=== PATIENT | female | born 1980 | race Caucasian/White ===

== ENCOUNTER 2016-07-18 02:33 | Inpatient (IN) | payer OTHER ==
[~2016-07-18] VITALS: Ht 182.9 cm; Wt 99.3 kg
[~2016-07-18 02:33] MED LIST: ALPR0.5T PO; ASCO500C6 PO; CHOL100043 PO; IBUP200C PO; MULT-1018 PO; OXYC1TAB24 PO; SCOP1PAT TD; ZLP5T PO
[2016-07-18] MEDS ORDERED: Lactated Ringer's 1,000 ML IV PRN (03:12)
[2016-07-18] MEDS ORDERED: Penicillin G K Inj 5,000,000 UNITS in Dextrose 5% Minibag Plus 100 ML IV ONE (03:15)
[2016-07-18] MEDS ORDERED: Oxytocin 30 Units/500 mL LR 30 UNITS in IV Premix 1 EACH IV PRN ×3 (03:15→23:55)
[2016-07-18] MEDS ORDERED: Sodium Chloride LOK Flush 10 mL Syringe IVFLUSH PRN (03:15)
[2016-07-18] MEDS ORDERED: Hemorrhage Kit, Post Partum XX ONE ×2 (03:15→23:55)
[2016-07-18] MEDS ORDERED: Methylergonovine 0.2 mg/mL Inj IM PRN ×2 (03:15→23:55)
[2016-07-18] MEDS ORDERED: Carboprost 250 mCg/mL Inj IM PRN ×2 (03:15→23:55)
[2016-07-18] MEDS ORDERED: Oxytocin 10 Unit/mL Inj IM PRN ×2 (03:15→23:55)
[2016-07-18] MEDS ORDERED: fentaNYL-PF 50 mCg/mL 2 mL Inj IVPUSH PRN (03:15)
[2016-07-18 04:02] LABS: Mean Corpuscular Hemoglobin 31.3 pg (27.0-35.0); Mean Corpuscular Volume 88.7 fL (81-100)
[2016-07-18] MEDS: Penicillin G K Inj 3,000,000 UNITS in IV Premix 1 EACH IV SCH ×4 (08:07→19:43)
--- NOTE | 2016-07-18 09:54 | HP ---
[address] [address] HISTORY AND PHYSICAL PATIENT: CLAUDIA SALAS : 1980 MR#: [id number] ADMIT: 07/18/2016 JOB ID: [id number] HISTORY OF PRESENT ILLNESS: The patient is a 35-year-old, 1, para 0, who comes to Labor and Delivery with complaint of spontaneous rupture of membranes at 2:15 a.m. She does not have any contractions. heart rate tracing is reactive, category 1. She feels good movements. Her care was complicated by mild -induced hypertension, the ultrasound and biophysical profiles that were done 3 weeks ago were normal. heart rate tracing is reactive, category 1, baseline 135 beats per minute. No decelerations. PERTINENT PAST MEDICAL HISTORY: Noncontributory. SOCIAL HISTORY: Patient denies smoking, alcohol, illicit or recreational drug use. ALLERGIES: NKDA. FAMILY HISTORY: Noncontributory. PHYSICAL EXAMINATION: Vital signs: Blood pressure 154/76, pulse 66, respiratory rate 18, temperature 36.7. The patient is awake and oriented x3 in no apparent distress. HEENT: PERRLA. Chest clear bilaterally, good respiratory effort. Cardiovascular regular rate and rhythm. Abdomen is gravid, nontender, nondistended. Extremities 1+ trace pitting edema. Pelvic exam: The cervix is 1 cm dilated, 50% effaced, station -3. The membranes ruptured. Amniotic fluid clear. LABS: WBC count 6.7, hemoglobin 13.5, hematocrit 38.3, platelets 207. Protein creatinine ratio 0.57. labs were reviewed. She is blood group and type O-positive, antibody is negative. Group B Strep positive. Rubella immune. Varicella immune. ASSESSMENT AND PLAN: A 35-year-old, 1, para 0, at 39 weeks and 3 days with spontaneous rupture of membranes being admitted to Labor and Delivery. The care is characterized by mild -induced hypertension. Today's blood pressure is elevated and protein creatinine ratio is slightly elevated at 0.57. No need for antihypertensive medications at this point. Augmentation of labor was discussed with the patient. Cervidil vaginal insert will be placed. The labs were sent. IV fluid started was lactated Ringer at 125 mL/h. Penicillin will be given for group B Strep prophylaxis. The pain management was discussed. Epidural anesthesia will be provided as necessary as per patient's request.
--- NOTE | 2016-07-18 14:03 | PROG NOTE ---
[address] [address] PROGRESS NOTE PATIENT: CLAUDIA SALAS : 1980 MR#: [id number] ADMIT: 07/18/2016 JOB ID: [id number] DATE: 07/18/2016 Vital signs are 118/79 for blood pressure. Respirations are 18, pulse is 64. Temperature 36.3 degrees centigrade. The patient admitted for premature rupture of membranes at 39 weeks and [address] Connor this morning. This is an IVF . Cervix is 1 cm dilated, 20% effaced, -3 station. Posterior position, medium consistency. Scott score of 2. Bedside ultrasound confirmed vertex presentation. The patient had Cervidil inserted vaginally at 8 a.m. this morning with no cervical change so far. Cervical ripening balloon was inserted, 60 cc injected in the uterine balloon and 60 cc injected in the vaginal balloon. Sterile water was used. The patient tolerated the insertion well. Cervidil was the left in place. heart tracing is showing baseline of 135 beats per minute, positive accelerations, no decelerations, moderate variability, reactive tracing. ASSESSMENT AND PLAN: Patient is a 35-year-old, 1, para zero, at 39 weeks and 2 days gestational age, with premature rupture of membranes. Induction of labor started with Cervidil and will continue with the balloon cervical ripening. Patient tolerated insertion well. GBS positive cultures. Penicillin started. Discussed intrapartum analgesia options. Patient opted for epidural. Anesthesia notified. Reactive heart tracing. Continue with external monitoring. All the above discussed in detail with the patient who agreed to the plan.
[2016-07-18] MEDS ORDERED: Lactated Ringer's 500 ML IV ONE (15:41)
[2016-07-18] MEDS: Lactated Ringer's 1,000 ML IV SCH ×2 (15:44→19:43)
[2016-07-18] MEDS ORDERED: Atropine 1 mg/10 mL (Code) Syringe IVPUSH PRN (15:45)
[2016-07-18] MEDS ORDERED: fentaNYL 2 mCg/mL-Bupiv 0.125% 100 ML EPIDURAL SCH (15:45)
[2016-07-18] MEDS ORDERED: EPHEDrine Sulfate 50 mg/mL Inj IVPUSH PRN (15:45)
[2016-07-18] MEDS ORDERED: Ondansetron 2 mg/mL 2 mL Inj IVPUSH PRN (15:45)
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
[2016-07-18] MEDS: Sodium Chloride LOK Flush 10 mL Syringe IVFLUSH SCH (16:30)
[2016-07-18] MEDS ORDERED: Mineral Oil-Heavy 30 mL UDC ONE (22:07)
[2016-07-18] MEDS ORDERED: Lactated Ringer's 1,000 ML IV SCH (23:53)
[2016-07-18] MEDS ORDERED: Benzocaine (Dermoplast) 20% 60 Gm Spray TOPICAL PRN (23:55)
[2016-07-18] MEDS ORDERED: oxyCODONE-Acetamin 5-325 mg Tablet PO PRN (23:55)
[2016-07-18] MEDS ORDERED: LANOlin HPA 7 Gm Ointment TOPICAL PRN (23:55)
[2016-07-19] MEDS: Penicillin G K Inj 3,000,000 UNITS in IV Premix 1 EACH IV SCH ×4 (00:30→07:12)
[2016-07-19] MEDS: Sodium Chloride LOK Flush 10 mL Syringe IVFLUSH SCH (00:30)
[2016-07-19] MEDS: Witch Hazel-Glycerin Pads TOPICAL PRN (01:25)
--- NOTE | 2016-07-19 02:04 | OP ---
[address] [address] OPERATIVE REPORT PATIENT: CLAUDIA SALAS : 1980 MR#: [id number] ADMIT: 07/18/2016 JOB ID: [id number] DATE OF SURGERY: 07/18/2016 PREOPERATIVE DIAGNOSIS(ES): A 35-year-old, 1, para 0, at 39 weeks and 2 days gestational age, admitted with premature rupture of membranes and preeclampsia by blood pressure criteria and urine protein creatinine of 0.[address] Connor. Induction of labor was started with Cervidil cervical ripening alone and Pitocin. The patient progressed to fully dilated, +3 station. POSTOPERATIVE DIAGNOSIS(ES): A 35-year-old, 1, para 0, at 39 weeks and 2 days gestational age, admitted with premature rupture of membranes and preeclampsia by blood pressure criteria and urine protein creatinine of 0.[address] Connor. Induction of labor was started with Cervidil cervical ripening alone and Pitocin. The patient progressed to fully dilated, +3 station. PROCEDURE: Spontaneous vaginal delivery. SURGEON: Morgan Ibarra MD ANESTHESIA: Epidural. ESTIMATED BLOOD LOSS: 200 cc. COMPLICATIONS: Persisting category 2 heart tracing at baseline of 150 beats per minute. Deep variables down to 50 beats per minute, back to the baseline, 3 minute prolonged decelerations down to 50 beats per minute, back to the baseline. Positive accelerations. DESCRIPTION OF PROCEDURE: Decision was made to proceed with a right mediolateral episiotomy. The patient agreed. Baby was delivered right after the episiotomy was cut. Procedure, risks, benefits, and alternatives discussed with the patient. The patient started to push efficiently. Infant had delivered in left occiput anterior position spontaneously, followed by shoulders and rest of the body. Delayed cord clamping allowed for 60 seconds. placed over mom's chest. Cord clamped and cut. Placenta followed spontaneously. Upon inspection, it was noted to be intact with marginal insertion of a three-vessel cord. Inspection of the perineum revealed a right mediolateral episiotomy that was cut to resolve the persisting category 2 heart tracing. Epidural was adequate for episiotomy repair, repaired in two layer fashion with 2-0 Vicryl suture. Good hemostasis assured. The patient tolerated the procedure well. Sponge, needle, and instrument counts were correct x2. Mom and baby recovering in stable condition in Labor and Delivery room. FINDINGS: Single viable male infant with Apgars 7/9, weight is still pending. Preeclampsia labs ordered for the morning.
[2016-07-19 06:09] LABS: Mean Corpuscular Hemoglobin 32.2 pg (27.0-35.0); Mean Corpuscular Volume 90.4 fL (81-100)
--- NOTE | 2016-07-19 06:19 | PCM.ANEP1 ---
Post Anesthesia PACU Phase 1 Assessment Date of Service: July 19, 2016 Vital Signs See OB documentation Anesthetic Administered: Epidural Level of Alertness: Awake, talking NAGEL's with Equal Strength: Yes Pain: Yes Pain Scale Score: 1 Nausea or Vomiting: No CV Function & Hydration Stable: Yes Airway Device: Oxygen Delivery: Room Air Lungs: Normal Air Movement Dermatome Level: Full Sensation PACU Phase 2 Assessment Complications: No Follow up Care: No Patient Instructions Provided: N/A Kale Muniz MD July 19, 2016 06:19
[2016-07-19] MEDS: Ascorbic Acid 500 mg Tablet PO SCH ×2 (08:52→21:40)
--- NOTE | 2016-07-19 14:20 | NUR ---
Wt. and color check: Wt. 2637gm today (-3.1%). TC bili 8.8 at 61 hrs. T 37.1, HR 130, RR 39. Mom states baby is nursing for 20 min and then taking 20-30 ml Neosure by bottle. Exam by Dr. Arguello. Dsbinharged home with f/u tomorrow at [facility].
--- NOTE | 2016-07-19 14:45 | PROG NOTE ---
[address] [address] PROGRESS NOTE PATIENT: CLAUDIA SALAS : 1980 MR#: [id number] ADMIT: 07/18/2016 JOB ID: [id number] DATE: 07/19/2016 Patient had a spontaneous vaginal delivery at midnight last night. Mom and baby recovering well. Breast-feeding with no difficulties. The patient denied any headache, visual symptoms, right upper quadrant pain, leg pain, chest pain, or shortness of breath. OBJECTIVE: Vital signs are 126/73 for blood pressure. Respirations are 18, pulse is 74, temperature 36.4 degrees centigrade. Blood pressure ranges for the last 14 hours 140-121 for systolics, 96-69 for diastolics. Heart is regular rate and rhythm. Positive S1, S2. Lungs clear to auscultation bilaterally upper and lower zones. Abdomen firm. Uterine fundus palpated above the umbilicus. Nontender. Positive bowel sounds. Nondistended abdomen. No right upper quadrant tenderness. Perineum: No active bleeding. Lower extremities: No calf tenderness appreciated bilaterally. Deep tendon reflexes are 2+ upper, 2+ lower. No clonus. LABORATORIES: This morning, blood urea nitrogen 7, creatinine is 0.74. AST 31, ALT 12. H and H is 11 and 30.9, platelets are 193. White blood count is 10.4. Urine/protein creatinine ratio is still pending. ASSESSMENT AND PLAN: Patient is a 35-year-old, 1, para 1, day number one, status post spontaneous vaginal delivery after induction of labor for premature rupture of membranes and preeclampsia. Blood pressures are improving over the last 14 hours with no medications. Labs are stable. Anemia: Started on iron and vitamin C supplementation. Continue with care. Anticipate discharge tomorrow.
--- NOTE | 2016-07-20 09:02 | PCM.PNOBPP ---
Subjective Date of Service July 20, 2016 Post : Spontaneous Vaginal Delivery Visit History A 35-year-old, 1, para 0, at 39 weeks and 2 days gestational age, admitted with premature rupture of membranes and preeclampsia by blood pressure criteria and urine protein creatinine of 0.[address] Connor. Induction of labor was started with Cervidil cervical ripening alone and Pitocin. The patient progressed to fully dilated, +3 station. Had an with episiotomy on 07/18/2016. she is doing well and her BP have returned to normal. Subjective No complaints today. Lochia: Normal Pain Management: PO pain meds, Good Pain Control Gastrointestinal: Good Appetite, No N/V Postop Activity: Ambulating Independently Group B Strep Results: Positive Rubella: Immune RH Type: Positive Labs Laboratory Tests 72 Hours Test 07/18/16 03:45 07/18/16 04:00 07/19/16 05:50 07/19/16 15:00 White Blood Count 6.7th/mm3 (3.8-10.1) 10.4th/mm3 (3.8-10.1) Red Blood Count 4.32mil/mm3 (3.90-5.20) 3.42mil/mm3 (3.90-5.20) Hemoglobin 13.5g/dL (12.0-15.6) 11.0g/dL (12.0-15.6) Hematocrit 38.3% (35.0-46.0) 30.9% (35.0-46.0) Mean Corpuscular Volume 88.7fL (81-100) 90.4fL (81-100) Mean Corpuscular Hemoglobin 31.3pg (27.0-35.0) 32.2pg (27.0-35.0) Mean Corpuscular Hemoglobin Concent 35.2% (32.0-37.0) 35.6% (32.0-37.0) Red Cell Distribution Width 13.0% (12.3-15.4) 12.8% (12.3-15.4) Platelet Count 207bil/L (150-400) 193bil/L (150-400) Blood Urea Nitrogen 8mg/dL (6-20) 7mg/dL (6-20) Creatinine 0.74mg/dL (0.57-1.00) 0.74mg/dL (0.57-1.00) Uric Acid 6.4mg/dL (2.6-7.2) Aspartate Amino Transf (AST/SGOT) 23U/L (0-50) 31U/L (0-50) Alanine Aminotransferase (ALT/SGPT) 15U/L (0-32) 12U/L (0-32) Urine Random Creatinine 28mg/dL (16-392) 35mg/dL (16-392) Urine Random Total Protein 16mg/dL (0-15) 5mg/dL (0-15) Urine Protein/Creatinine Ratio 0.57 (0-200) 0.14 (0-200) Exam Vital Signs Vital Signs: VS reviewed, stable Exam Abdomen: Fundus firm Extremities: No cords Lungs: Clear to Auscultation Heart: Exam Unremarkable General: Alert, Oriented X3, Cooperative, No Acute Distress OB Post Assessment/Plan Problems: (1) care and examination immediately after delivery Status: Acute ICD Code: Z39.0 (2) Mild preeclampsia delivered Status: Acute ICD Code: O14.04 Pain Evaluation: Adequate Pain Control Post plan: Anticipate discharge home today Monse Bashir MD July 20, 2016 09:02
--- NOTE | 2016-07-20 09:04 | PCM.DIOB ---
Obstetrical Disch Instruction Date of Service: July 20, 2016 Dates of Hospitalization Date of Hospital Admission July 18, 2016 at 03:05 Providers Admitting Physician: Al Connor MD Primary Care Physician: Errol Owens MD Attending Physician: Al Connor MD Discharge Diagnosis Problems: (1) care and examination immediately after delivery Plan: Discharge home today. Status: Acute ICD Code: Z39.0 (2) Mild preeclampsia delivered Status: Acute ICD Code: O14.04 Diet Discharge Diet: No restrictions Activity Discharge Activity-General: Pelvic Rest for 6 weeks, Try not to overdue, Be up and about Dressing and Incisional Care Hygiene: May shower, NO bathtub, hot tub or whirlpool (for two weeks), Perineal care, Sitz bath, Dermoplast spray, Witch Luana pads, Ice Follow Up Plan Follow-up Provider (F9): Monse Bashir MD Follow-up appointment: Weeks (4) Call your provider for: Fever or Chills, Shortness of breath, Heavy vaginal bleeding, Vaginal discomfort, Red painful breasts Monse Bashir MD July 20, 2016 09:04
[2016-07-20] MEDS ORDERED: FERR-74 PO (09:08)
[2016-07-20] MEDS ORDERED: IBUP-1827 PO (09:08)
[2016-07-20] MEDS ORDERED: Ascorbic Acid PO (09:08)
[2016-07-20] MEDS ORDERED: DOCU-41 PO (09:08)
[2016-07-20] MEDS ORDERED: OXYC1TAB24 PO (09:08)
--- NOTE | 2016-07-20 09:10 | PCM.DC.OB ---
Obstetrical Discharge Summary Date of Service July 20, 2016 Date of hospital admission July 18, 2016 at 03:05 Date of Discharge: July 20, 2016 Providers Admitting Physician: Al Connor MD Primary Care Physician: Errol Owens MD Attending Physician: Al Connor MD Problems: (1) care and examination immediately after delivery Status: Acute ICD Code: Z39.0 (2) Mild preeclampsia delivered Status: Acute ICD Code: O14.04 Brief History and Physical: A 35-year-old, 1, para 0, at 39 weeks and 2 days gestational age, admitted with premature rupture of membranes and preeclampsia by blood pressure criteria and urine protein creatinine of 0.[address] Connor. Induction of labor was started with Cervidil cervical ripening alone and Pitocin. The patient progressed to fully dilated, +3 station. Had an with episiotomy on 07/18/2016. she is doing well and her BP have returned to normal. Hospital Course: A 35-year-old, 1, para 0, at 39 weeks and 2 days gestational age, admitted with premature rupture of membranes and preeclampsia by blood pressure criteria and urine protein creatinine of 0.[address] Connor. Induction of labor was started with Cervidil cervical ripening alone and Pitocin. The patient progressed to fully dilated, +3 station. Had an with episiotomy on 07/18/2016. she is doing well and her BP have returned to normal. ([Ascorbic Acid]) 500 MG TABLET 500 MG PO BIDWM Prescribed by: MONSE BASHIR MD Alprazolam (Xanax) 0.5 Mg Tablet 0.5 MG PO DAILY PRN PRN For Anxiety (Reported) Ascorbic Acid (Vitamin C) 500 Mg Capsule.er 500 MG PO DAILY (Reported) Cholecalciferol (Vitamin D3) (Vitamin D) 1,000 Unit Tablet 2,000 UNIT PO DAILY ( Reported) Docusate Sodium (Colace) 100 Mg Capsule 100 MG PO BID Prescribed by: MONSE BASHIR MD Ferrous Sulfate (Feosol) 325 Mg Tablet 325 MG PO BIDWM Prescribed by: MONSE BASHIR MD Ibuprofen (Ibuprofen) 200 Mg Capsule 200 MG PO QID PRN PRN For Pain (Reported) Ibuprofen (Ibuprofen) 600 Mg Tablet 600 MG PO Q6H PRN PRN For Mild Pain Prescribed by: MONSE BASHIR MD Multivitamin (Multi Vitamin Daily) 1 Each Tablet 1 EACH PO DAILY (Reported) Scopolamine (Transderm-Scop) 1 Each Patch.td72 1 EACH TD pm prior to surgery ( Reported) Zolpidem (Ambien) 5 Mg Tablet 5 MG PO HS PRN PRN For Insomnia (Reported) oxyCODONE-Acetaminophen 5-325 mg (oxyCODONE-Acetaminophen 5-325 mg) 1 Each Tablet 1 TAB PO Q6H PRN PRN For Pain Prescribed by: MONSE BASHIR MD Discharge Diet: No restrictions Discharge Activity-General: Pelvic Rest for 6 weeks, Try not to overdue Monse Bashir MD July 20, 2016 09:10
[2016-07-20] MEDS: Witch Hazel-Glycerin Pads TOPICAL PRN (09:45)
[2016-07-20] MEDS: Ascorbic Acid 500 mg Tablet PO SCH (09:46)
== END 2016-07-20 12:54 | disposition home or self-care (01) | DRG 775 ==
LOC: FBCO 02:33 → FBC 03:05
PROVIDERS: ADMIT Legal Medicine; ATTEND Legal Medicine
PROC: 10E0XZZ Delivery of Products of Conception, External Approach (ICD-10-PCS; principal; 2016-07-18)
PROC: 0W8NXZZ Division of Female Perineum, External Approach (ICD-10-PCS; 2016-07-18)
DX: O42.02 Full-term premature rupture of membranes, onset of labor within 24 hours of rupture (principal); Z3A.39 39 weeks gestation of pregnancy; Z37.0 Single live birth; O99.824 Streptococcus B carrier state complicating childbirth; O76 Abnormality in fetal heart rate and rhythm complicating labor and delivery; O14.04 Mild to moderate pre-eclampsia, complicating childbirth